=== PATIENT | male | born 1960 | race American Indian/Alaskan Native ===

== ENCOUNTER 2017-09-06 23:07 | Emergency (ER) | payer OTHER ==
[2017-09-06] MEDS ORDERED: MOTRIN ONE (23:08)
[2017-09-06 23:15] VITALS: BP 132/94
[2017-09-06] MEDS ORDERED: MOTRIN PO ONE (23:17)
--- NOTE | 2017-09-06 23:48 | XRay Report ---
FINAL REPORT PROCEDURE: XR FOOT 3+V RT TECHNIQUE: RIGHT foot radiographs, AP, lateral, and oblique views. CPT 86785 HISTORY: Right foot pain. COMPARISON: No prior studies are available for comparison. FINDINGS: Fracture (s) and/or Dislocation(s): None . Alignment: Normal . Joint space(s): Mild narrowing and osteophytes of the midfoot. Soft tissues: Normal . Bone mineralization: Normal . Foreign bodies: None . Calcaneal spurring: None . IMPRESSION: No radiographic evidence of acute abnormality.
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
== END 2017-09-07 01:08 | disposition home or self-care (01) ==
LOC: ED 23:07
DX: S96.911A Strain of unspecified muscle and tendon at ankle and foot level, right foot, initial encounter (principal); F17.200 Nicotine dependence, unspecified, uncomplicated; W20.8XXA Other cause of strike by thrown, projected or falling object, initial encounter; Y92.89 Other specified places as the place of occurrence of the external cause; Y93.89 Activity, other specified; Y99.8 Other external cause status
CPT/HCPCS: 99283

== ENCOUNTER 2019-03-24 10:50 | Emergency (ER) | payer SELFPAY ==
[2019-03-24 11:13] VITALS: BP 148/90
== END 2019-03-24 11:15 | disposition left against medical advice (07) ==
LOC: ED 10:50
DX: M79.601 Pain in right arm (principal); Z53.21 Procedure and treatment not carried out due to patient leaving prior to being seen by health care provider

== ENCOUNTER 2019-05-07 17:11 | Emergency (ER) | payer SELFPAY | END 2019-05-07 19:45 | disposition left against medical advice (07) | LOC: ED 17:11 | DX: M79.605 Pain in left leg (principal); Z53.21 Procedure and treatment not carried out due to patient leaving prior to being seen by health care provider ==

== ENCOUNTER 2019-09-08 16:40 | Emergency (ER) | payer OTHER ==
[2019-09-08] MEDS ORDERED: KETOROLAC 30 MG/1 ML INJ IV ONE (17:12)
[2019-09-08] MEDS ORDERED: ONDANSETRON 4 MG/2 ML INJ IV ONE (17:12)
[2019-09-08] MEDS ORDERED: MORPHINE 4 MG/1 ML INJ IV ONE (17:12)
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
[2019-09-08 20:07] VITALS: BP 123/54
== END 2019-09-08 20:06 | disposition home or self-care (01) ==
LOC: ED 16:40
DX: S92.411A Displaced fracture of proximal phalanx of right great toe, initial encounter for closed fracture (principal); S40.812A Abrasion of left upper arm, initial encounter; S40.811A Abrasion of right upper arm, initial encounter; S80.812A Abrasion, left lower leg, initial encounter; S80.811A Abrasion, right lower leg, initial encounter; F17.200 Nicotine dependence, unspecified, uncomplicated; F12.10 Cannabis abuse, uncomplicated; V89.9XXA Person injured in unspecified vehicle accident, initial encounter; Y93.89 Activity, other specified; Y92.89 Other specified places as the place of occurrence of the external cause; Y99.8 Other external cause status
CPT/HCPCS: 29515; 73610; 73630; 96374; 96375; 99283; J1885; J2270; J2405

== ENCOUNTER 2019-10-05 10:58 | Emergency (ER) | payer OTHER ==
[2019-10-05 11:08] VITALS: BP 166/88
== END 2019-10-05 11:15 | disposition left against medical advice (07) ==
LOC: ED 10:58
DX: M25.511 Pain in right shoulder (principal); Z53.21 Procedure and treatment not carried out due to patient leaving prior to being seen by health care provider